=== PATIENT | female | born 1950 | race Caucasian/White ===

== ENCOUNTER 2018-08-22 07:37 | Day surgery (SDC) | payer MEDICAID, MEDICARE ==
[~2018-08-22] VITALS: Ht 160 cm; Wt 52.0 kg
[~2018-08-22 07:37] MED LIST: LIDOcaine 1% 30ml preserv. free vial SQ STA; LISI40TA4 PO; LOP25T PO; LORA1TAB PO; METO10TA3 PO; NOR5T PO; OXYC-658 PO; TRAM50TA2 PO; TRAZ-91 PO
[2018-08-22 07:58] VITALS: BP 112/70
[2018-08-22] MEDS ORDERED: normal saline 1000ml 1,000 ML IV PRN (08:05)
[2018-08-22] MEDS ORDERED: ASPI-1265 PO (08:25)
[2018-08-22] MEDS ORDERED: CYCL-394 PO (08:25)
[2018-08-22] MEDS ORDERED: ATOR80TA PO (08:25)
[2018-08-22] MEDS ORDERED: MULT-955 PO (08:25)
[2018-08-22] MEDS ORDERED: METF500T PO (08:25)
[2018-08-22] MEDS ORDERED: FERR325T28 PO (08:25)
== END 2018-08-22 08:50 | disposition home or self-care (01) ==
LOC: SSTAY O 07:37
PROVIDERS: ATTEND Radiology Diagnostic Radiology
DX: R14.0 Abdominal distension (gaseous) (principal); E78.5 Hyperlipidemia, unspecified; E11.9 Type 2 diabetes mellitus without complications; Z86.19 Personal history of other infectious and parasitic diseases; Z96.641 Presence of right artificial hip joint; Z79.84 Long term (current) use of oral hypoglycemic drugs; Z79.82 Long term (current) use of aspirin; Z79.899 Other long term (current) drug therapy; Z98.890 Other specified postprocedural states
CPT/HCPCS: 76705; J3490; J7030

== ENCOUNTER 2018-10-23 09:07 | Day surgery (SDC) | payer MEDICARE ==
[~2018-10-23] VITALS: Ht 160 cm; Wt 54.5 kg
[~2018-10-23 09:07] MED LIST changes: +ASPI-1265 PO; +ATOR80TA PO; +CYCL-394 PO; +FERR325T28 PO; -LIDOcaine 1% 30ml preserv. free vial SQ STA; -LISI40TA4 PO; -LOP25T PO; -LORA1TAB PO; +METF500T PO; -METO10TA3 PO; +MULT-955 PO; -NOR5T PO; -OXYC-658 PO; -TRAM50TA2 PO; -TRAZ-91 PO
[2018-10-23 09:20] VITALS: BP 128/74
[2018-10-23] MEDS ORDERED: TRAM50TA2 PO (09:25)
[2018-10-23] MEDS ORDERED: fentaNYL/PF 50MCG/1 ML 2ML syringe ONE ×2 (09:51→10:05)
[2018-10-23] MEDS ORDERED: MIDAZolam 5mg/5ml vial ONE ×2 (09:51→10:05)
[2018-10-23] MEDS ORDERED: LIDOcaine Viscous 15ml cup ONE (09:51)
[2018-10-23 10:17] VITALS: BP 134/68
[2018-10-23 10:27] VITALS: BP 125/57
[2018-10-23 10:37] VITALS: BP 122/57
[2018-10-23 10:47] VITALS: BP 119/54
== END 2018-10-23 11:05 | disposition home or self-care (01) ==
LOC: GI LAB 09:07
PROVIDERS: ATTEND Internal Medicine Gastroenterology
DX: I85.00 Esophageal varices without bleeding (principal); K20.9 Esophagitis, unspecified; K29.70 Gastritis, unspecified, without bleeding; K31.89 Other diseases of stomach and duodenum; K76.6 Portal hypertension; K74.60 Unspecified cirrhosis of liver; K26.9 Duodenal ulcer, unspecified as acute or chronic, without hemorrhage or perforation
CPT/HCPCS: 43239; G0500; J2250; J3010; J7030; 88305; 88342; 99152; 99153; A4620

== ENCOUNTER 2018-11-11 13:44 | Emergency (ER) | payer MEDICARE ==
[~2018-11-11] VITALS: Ht 160 cm; Wt 56.4 kg
[~2018-11-11 13:44] MED LIST changes: +TRAM50TA2 PO
[2018-11-11 13:55] VITALS: BP 157/73
[2018-11-11] MEDS ORDERED: CEPH-572 PO (14:35)
== END 2018-11-11 15:53 | disposition home or self-care (01) ==
LOC: ER 13:44
DX: S62.501A Fracture of unspecified phalanx of right thumb, initial encounter for closed fracture (principal); L03.012 Cellulitis of left finger; Z86.19 Personal history of other infectious and parasitic diseases; Z79.82 Long term (current) use of aspirin; Z79.2 Long term (current) use of antibiotics; Z79.899 Other long term (current) drug therapy; X58.XXXA Exposure to other specified factors, initial encounter; Y93.89 Activity, other specified; Y92.89 Other specified places as the place of occurrence of the external cause; Y99.8 Other external cause status
CPT/HCPCS: 29125; 73110; 99283